=== PATIENT | male | born 1995 | race Two or more races ===

== ENCOUNTER 2021-11-28 23:29 | Emergency (ER) | payer BC ==
[~2021-11-28] VITALS: Ht 177.8 cm; Wt 68.2 kg
[2021-11-28] MEDS ORDERED: ondansetron 4mg rapidly disintigrating tab PO ONE (23:40)
[2021-11-28] MEDS ORDERED: diphenhydrAMINE 50 mg/ml inj IV ONE (23:55)
[2021-11-28] MEDS ORDERED: metoclopramide 5 mg/ml inj IV ONE (23:55)
[2021-11-28 23:57] LABS: BASOPHILS # (AUTO) 0.1 X10'3 (0-0.2); BASOPHILS % (AUTO) 0.5 % (0-1); EOSINOPHILS # (AUTO) 0.1 X10'3 (0-0.9); EOSINOPHILS % (AUTO) 0.6 % (0-6); HEMATOCRIT 45.5 % (42.0-52.0); HEMOGLOBIN 15.6 g/dl (14.0-17.9); LYMPHOCYTES # (AUTO) 1.4 X10'3 (1.1-4.8); LYMPHOCYTES % (AUTO) 10.4 % (21-51); MEAN CORPUSCULAR HEMOGLOBIN 28.8 PG (27.0-31.0); MEAN CORPUSCULAR HGB CONC 34.3 g/dL (33.0-36.5); MEAN PLATELET VOLUME 8.7 FL (7.4-10.4); MONOCYTES # (AUTO) 0.5 X10'3 (0-0.9); NEUTROPHILS # (AUTO) 11.3 X10'3 (1.8-7.7); NEUTROPHILS % (AUTO) 84.5 % (42-75); PLATELET COUNT 242 X10'3 (140-440); RED BLOOD COUNT 5.41 X10'6 (4.70-6.10); RED CELL DISTRIBUTION WIDTH 12.7 % (11.5-14.5); WHITE BLOOD COUNT 13.3 X10'3 (4.5-11.0)
[2021-11-29 00:07] LABS: ALANINE AMINOTRANSFERASE 26 U/L (12-78); ALBUMIN 4.4 G/DL (3.4-5.0); ALBUMIN/GLOBULIN RATIO 1.2 (1.1-1.5); ALKALINE PHOSPHATASE 69 IU/L (46-116); ANION GAP 10 (8-16); ASPARTATE AMINO TRANSFERASE 20 U/L (10-37); BILIRUBIN,TOTAL 0.8 MG/DL (0.1-1.0); BLOOD UREA NITROGEN 15 MG/DL (7-18); BUN/CREATININE RATIO 14.9 (5.4-32.0); CALCIUM 9.6 MG/DL (8.5-10.1); CHLORIDE 102 MMOL/L (99-107); CREATININE 1.01 MG/DL (0.60-1.10); GLUCOSE 113 MG/DL (70-104); LIPASE 156 U/L (73-393); POTASSIUM 3.7 MMOL/L (3.5-5.1); SODIUM 138 MMOL/L (135-145); TOTAL CARBON DIOXIDE 26.3 MMOL/L (24-32); TOTAL PROTEIN 8.2 G/DL (6.4-8.2); eGFR > 90 ML/MIN
[2021-11-29] MEDS ORDERED: normal saline 1000ML IV soln IVB ONE (00:10)
[2021-11-29] MEDS ORDERED: ketorolac trometh. 30mg/ml inj. IV ONE (01:10)
[2021-11-29] MEDS ORDERED: glycopyrrolate 0.2mg/ml inj IV ONE (01:10)
[2021-11-29] MEDS ORDERED: LIDOcaine Viscous 15ml cup MM ONE (01:55)
[2021-11-29] MEDS ORDERED: phenobarb/hyoscy/atropine/scop (Donnatal) 16.2mg tablet PO STA (01:55)
[2021-11-29] MEDS ORDERED: mag hydrox/Alum hydrox/simeth 30ml oral suspension PO ONE (01:55)
[2021-11-29 01:59] LABS: CLARITY,URINE CLEAR (Clear); COLOR,URINE YELLOW (Yellow); GLUCOSE, URINE NEGATIVE (Neg); KETONES,URINE TRACE mg/dl (Neg); LEUKOCYTE ESTERASE ,URINE NEGATIVE (Neg); NITRITES, URINE NEGATIVE (Neg); OCCULT BLOOD,URINE NEGATIVE (Neg); PROTEIN,URINE NEGATIVE (Neg); UROBILINOGEN,URINE 0.2 E.U/dL (0.2-1.0)
[2021-11-29 02:01] LABS: UA COLLECTION TYPE CLN CATCH MIDSTREAM
--- NOTE | 2021-11-29 02:27 | NUR ---
PHARMACY CALLED TO REPORT THAT WE ARE OUT OF "" MEDICATION. DR BROWNFS AWARE.
[2021-11-29] MEDS ORDERED: ONDA4TAB12 PO (02:43)
[2021-11-29] MEDS ORDERED: oxyCODONE/APAP 5-325mg tablet PO ONE (02:45)
[2021-11-29 03:12] VITALS: BP 113/71
== END 2021-11-29 03:13 | disposition home or self-care (01) ==
LOC: ER 23:30
DX: R10.13 Epigastric pain (principal); R11.2 Nausea with vomiting, unspecified; F12.90 Cannabis use, unspecified, uncomplicated; Z79.899 Other long term (current) drug therapy
CPT/HCPCS: 36415; 80053; 81003; 83690; 85025; 96361; 96374; 96375; 99285; J1200; J1885; J2765; J3490; J7030